=== PATIENT | male | born 1970 | race Caucasian/White ===

== ENCOUNTER 2017-03-10 05:17 | Day surgery (SDC) | payer OTHER ==
[~2017-03-10] VITALS: Ht 172.7 cm; Wt 101.6 kg
--- NOTE | 2017-03-12 10:22 | OR ---
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 PROCEDURE: Left-sided minimally invasive L4-L5, L5-S1 foraminotomy with direct visualization of decompressed elements with intraoperative use of microscopy with microsurgical dissection technique, also with the use of fluoroscopy with physician interpretation of film. DESCRIPTION OF PROCEDURE: After gaining informed consent, the patient was taken to the operative theater, placed under general endotracheal anesthesia in a supine position and turned prone on a Luis table. All pressure points were purposely padded prior to performing the procedure. He was prepped and draped in the usual sterile fashion. A time-out was utilized to ascertain the correct site and side of surgery as well as other pertinent patient historical information. Counts were obtained at the beginning and the end of the case with no change betwixt the two. Antibiotics were given within 1 hour of incision. The fluoroscope was brought into the field, and L4-L5 and L5-S1 levels were delineated. Stab incision was then fashioned and the 20 mm tubular retractor system was then advanced in through the musculature, and the microscope was then brought into the field. Creeping musculature was electrocauterized back at the L4-L5 level on the left. The high-speed drill, various curettes, rongeurs were used to resect hypertrophic and arthritic tissue out of the neuro foramen and lateral recesses. By the completion of this and after resection of ligamentum flavum, I was able to sound out into the neuro foramen with no further sign of compression. After this, the tube was wended down to the L5-S1 level. In a similar fashion, foraminotomy was performed utilizing microsurgical dissection technique again. I was able to sound into this neuro foramen after revealing good transit area for the nerve root. After this was ADMIT: 03/10/2017 RM/LOC: [facility] MR#: [id number] [address] [address] [facility] [place] [address] Operative/Delivery Room Report SEX: M AGE: 46 : 1970 completed, 10 mL 0.5% Marcaine was placed in the each side of the paraspinous musculature. The wound was closed with simple interrupted 2-0 Vicryl in the thoracodorsal fascia, simple inverted interrupted 2-0 Vicryl in the hypodermic tissue, and subcuticular 3-0 Stratafix on the skin. COMPLICATIONS: None. ESTIMATED BLOOD LOSS: Charted. SPECIMEN: None. DISPOSITION: Extubated and taken to postanesthesia care unit. Shaheen Hussein MD/ naveed JOB #: [id number] CC: Shaheen Hussein, Attending Physician Mitchell Pugh, Family Physician
== END 2017-03-10 11:15 | disposition home or self-care (01) ==
LOC: SSS 05:17
PROC: 01NB0ZZ Release Lumbar Nerve, Open Approach (ICD-10-PCS; principal; 2017-03-10)
DX: M48.07 Spinal stenosis, lumbosacral region (principal); M48.06 Spinal stenosis, lumbar region; M54.17 Radiculopathy, lumbosacral region; F41.9 Anxiety disorder, unspecified; E66.9 Obesity, unspecified; Z68.34 Body mass index [BMI] 34.0-34.9, adult; E53.8 Deficiency of other specified B group vitamins; Z87.891 Personal history of nicotine dependence; Z98.890 Other specified postprocedural states

== ENCOUNTER 2017-05-12 09:36 | Emergency (ER) | payer SELFPAY ==
--- NOTE | 2017-05-22 07:07 | ER ---
ADMIT: 05/12/2017 RM/LOC: ER [facility] MR#: [id number] [address] [address] [address] [place] [address] Emergency Room Report SEX: M AGE: 46 : 1970 DATE: 05/12/2017 ADDENDUM: CHIEF COMPLAINT: Dog bite. HISTORY OF PRESENT ILLNESS: This 46-year-old whose dog is a pit bull. He said he was just eating his bread with one hand and going to pet the dog with the other hand. He does not know if the dog was trying to get the food or what happened, but he bit him in the right hand, right forearm, and left hand. Most of the dog bite were mostly puncture wounds and superficial except for his forearm. On both the anterior and posterior side of the forearm, there are 2 lacerations, please see T-sheet for repair on that. CLINICAL IMPRESSION: A dog bite to the right hand, forearm, and left hand. DISPOSITION: Send him home with Augmentin for 7 days. Told him to keep the area clean and dry. Follow up with his primary care physician in 7 to 10 days for suture removal. CHRISTINA Martinez / Tate Andres MD / dorital JOB #: [id number] CC: Tate Andres MD, Attending Physician
== END 2017-05-12 11:00 | disposition home or self-care (01) ==
LOC: ER 09:36
PROC: 0HQDXZZ Repair Right Lower Arm Skin, External Approach (ICD-10-PCS; principal; 2017-05-12)
DX: S51.811A Laceration without foreign body of right forearm, initial encounter (principal); S61.431A Puncture wound without foreign body of right hand, initial encounter; S61.432A Puncture wound without foreign body of left hand, initial encounter; I10 Essential (primary) hypertension; F41.9 Anxiety disorder, unspecified; Z98.890 Other specified postprocedural states; Z79.899 Other long term (current) drug therapy; W54.0XXA Bitten by dog, initial encounter